=== PATIENT | male | born 1945 | race Caucasian/White ===

== ENCOUNTER 2020-06-19 17:34 | Inpatient (IN) | payer MEDICARE, OTHER ==
[~2020-06-19] VITALS: Ht 172.7 cm; Wt 81.7 kg
[~2020-06-19 17:34] MED LIST: OMEP20ER PO
[2020-06-19] MEDS ORDERED: Prinivil10 MG PO (17:56)
[2020-06-19] MEDS ORDERED: HYDCHL12.5 PO (17:56)
[2020-06-19] MEDS ORDERED: MULTIPLE VITAM1 EACH PO (17:57)
[2020-06-19 18:04] LABS: BASOPHILS ABSOLUTE AUTO 0.06 K/mm3 (0.00-0.23); BASOPHILS PERCENT AUTO 0 % (0-2); EOSINOPHILS ABSOLUTE AUTO 0.15 K/mm3 (0.00-0.68); EOSINOPHILS PERCENT AUTO 1 % (0-6); Hematocrit 42.6 % (37.0-53.0); Hemoglobin 14.8 g/dL (13.5-17.5); IMMATURE GRAN ABSOLUTE AUTO 0.06 K/mm3 (0.00-0.10); IMMATURE GRAN PERCENT AUTO 0 % (0-1); LYMPHOCYTES ABSOLUTE AUTO 2.94 K/mm3 (0.84-5.20); LYMPHOCYTES PERCENT AUTO 20 % (21-46); MONOCYTES PERCENT AUTO 12 % (4-13); Mean Corpuscular HGB 30.6 pg (26.0-34.0); Mean Corpuscular HGB Conc 34.7 g/dL (31.5-36.5); Mean Corpuscular Volume 88 fL (80-100); Mean Platelet Volume 9.9 fL (9.1-12.4); NEUTROPHILS ABSOLUTE AUTO 9.61 K/mm3 (1.96-9.15); NEUTROPHILS PERCENT AUTO 66 % (41-73); Platelet Count 281 K/mm3 (150-400); RDW Standard Deviation 42.2 fL (35.1-46.3); Red Blood Cell Count 4.84 M/mm3 (4.30-5.90); White Blood Cell Count 14.52 K/mm3 (4.00-11.30)
[2020-06-19] MEDS ORDERED: LATA.005SO LEFTEYE (18:04)
[2020-06-19] MEDS ORDERED: MAGNESIUM OXID500 MG PO (18:06)
[2020-06-19] MEDS ORDERED: PREDNISOLONE ACE5 ML RIGHTEYE (18:06)
[2020-06-19] MEDS ORDERED: CHLOR-TRIMETON4 M1 PO (18:09)
[2020-06-19 18:18] LABS: Alanine Aminotransfer (ALT/SGP 36 U/L (12-78); Albumin, Blood 3.9 g/dL (3.4-5.0); Albumin/Globulin Ratio 1.1 (0.8-1.8); Alk Phos 78 U/L (50-136); Anion Gap 8 mmol/L (6-16); Aspartate Aminotrans (AST/SGOT 17 U/L (12-37); Bilirubin, Total 0.9 mg/dL (0.1-1.0); Blood Urea Nitrogen 18 mg/dL (8-24); Bun/Creatinine Ratio 17.6 (12.0-20.0); CO2, Blood 23 mmol/L (21-32); Calcium, Blood 9.4 mg/dL (8.5-10.1); Chloride, Blood 104 mmol/L (98-108); Creatinine, Blood 1.02 mg/dL (0.60-1.20); Globulin, Blood 3.6 g/dL (2.2-4.0); Glomerular Filtration Rate >60 (60-); Glucose, Blood 146 mg/dL (70-99); Potassium, Blood 3.6 mmol/L (3.5-5.5); Sodium, Blood 135 mmol/L (136-145); Total Protein, Blood 7.5 g/dL (6.4-8.2); Troponin I <0.015 ng/mL (0.000-0.040)
[2020-06-19] MEDS ORDERED: Vitamin B Comple1 EA PO (18:29)
[2020-06-19] MEDS ORDERED: Roxicodone5 MG PO (19:48)
[2020-06-19] MEDS ORDERED: ONDA4ODT MM (19:48)
[2020-06-19] MEDS ORDERED: VITAMIN D5000 UNIT PO (20:45)
[2020-06-19] MEDS ORDERED: IBUP400 PO (20:45)
[2020-06-19] MEDS ORDERED: POTASSIUM GLUC500 M1 PO (20:51)
[2020-06-20 02:08] LABS: Source, Urine Clean Catch
[2020-06-20 02:20] LABS: Bilirubin, Urine Neg (Neg); Blood, Urine Neg (Neg); Glucose Qualitative, Urine 1+ (Neg); Ketones, Urine 2+ (Neg); Leukocyte Esterase, Urine Neg (Neg); Nitrite, Urine Neg (Neg); Protein, Urine 1+ (Neg); Urobilinogen, Urine NORM (Normal)
[2020-06-20 02:35] LABS: Appearance, Urine Clear (Clear); Color, Urine Yellow (P-Yellow)
--- NOTE | 2020-06-20 05:05 | NUR ---
SUMMARY PT ARRIVED TO FLOOR IN DISCOMFORT. PT TX PER EMAR W/ RELIEF. PT REPORTED PAIN BEFOR NEXT DOSE WAS DUE. DR BACON CALLED AND CHANGED PAIN MED TO Q2HRS. PT MORE COMFORTABLE. PT HAS BEEN BED REST AND USING URINAL TO VOID. PT HAS NOT REPORTED ANY DIZZINESS. PT HAS REMAINED NPO. PT HAS BEEN ABLE TO SLEEP SOME. PT CURRENTLY SLEEPING AND COMFORTABLE. CALL LIGHT IN REACH.
[2020-06-20 05:19] LABS: BASOPHILS ABSOLUTE AUTO 0.03 K/mm3 (0.00-0.23); BASOPHILS PERCENT AUTO 0 % (0-2); EOSINOPHILS ABSOLUTE AUTO 0.01 K/mm3 (0.00-0.68); EOSINOPHILS PERCENT AUTO 0 % (0-6); Hematocrit 39.7 % (37.0-53.0); Hemoglobin 13.6 g/dL (13.5-17.5); IMMATURE GRAN ABSOLUTE AUTO 0.04 K/mm3 (0.00-0.10); IMMATURE GRAN PERCENT AUTO 0 % (0-1); LYMPHOCYTES ABSOLUTE AUTO 1.02 K/mm3 (0.84-5.20); LYMPHOCYTES PERCENT AUTO 7 % (21-46); MONOCYTES ABSOLUTE AUTO 1.41 K/mm3 (0.16-1.47); MONOCYTES PERCENT AUTO 9 % (4-13); Mean Corpuscular HGB 30.4 pg (26.0-34.0); Mean Corpuscular HGB Conc 34.3 g/dL (31.5-36.5); Mean Corpuscular Volume 89 fL (80-100); Mean Platelet Volume 9.9 fL (9.1-12.4); NEUTROPHILS PERCENT AUTO 83 % (41-73); Platelet Count 239 K/mm3 (150-400); RDW Coefficient Variation 13.1 % (11.7-14.2); RDW Standard Deviation 42.8 fL (35.1-46.3); Red Blood Cell Count 4.48 M/mm3 (4.30-5.90); White Blood Cell Count 15.11 K/mm3 (4.00-11.30)
[2020-06-20 06:29] LABS: Alanine Aminotransfer (ALT/SGP 30 U/L (12-78); Albumin, Blood 3.1 g/dL (3.4-5.0); Albumin/Globulin Ratio 0.9 (0.8-1.8); Alk Phos 66 U/L (50-136); Anion Gap 7 mmol/L (6-16); Aspartate Aminotrans (AST/SGOT 16 U/L (12-37); Bilirubin, Total 1.3 mg/dL (0.1-1.0); Blood Urea Nitrogen 14 mg/dL (8-24); Bun/Creatinine Ratio 18.3 (12.0-20.0); CHOL/HDL RATIO 3.4; CO2, Blood 25 mmol/L (21-32); Calcium, Blood 8.5 mg/dL (8.5-10.1); Chloride, Blood 105 mmol/L (98-108); Cholesterol 186 mg/dL (50-200); Creatinine, Blood 0.77 mg/dL (0.60-1.20); Globulin, Blood 3.6 g/dL (2.2-4.0); Glomerular Filtration Rate >60 (60-); Glucose, Blood 130 mg/dL (70-99); HDL Cholesterol 55 mg/dL (>39); LDL/HDL RATIO 2.2; Low Density Lipoprotein Chol 121 mg/dL (0-110); Magnesium, Blood 2.1 mg/dL (1.6-2.4); Potassium, Blood 4.3 mmol/L (3.5-5.5); Sodium, Blood 137 mmol/L (136-145); Total Protein, Blood 6.7 g/dL (6.4-8.2); Triglycerides 50 mg/dL (30-160); Very Low Density Lipoprot Chol 10 mg/dL (6-32)
--- NOTE | 2020-06-20 17:34 | NUR ---
SHIFT SUMMARY PT CONTINUED ON NS IV FLUIDS AT 125ML/HR. OKAY FOR ICE CHIPS. PT IS TOLERATING SMALL AMOUNTS WELL. PAIN WAS DIFFICULT TO MANAGE THIS AM, WHILE BEING TREATED EVERY 2 HOURS WITH FENTANYL. LOWEST PAIN RATING WAS A 5 WITH FENTANYL. IV DILADID ADDED BY DR. HOLDER TODAY, WHICH SEEMS TO BE WORKING BETTER FOR THE PT. PT GOING LONGER PERIODS OF TIME WITHOUT MEDICATION AND REPORTS MINIMAL PAIN AFTER IT IS ADMINISTERED. PT , JENNIFER, AT BEDSIDE. NO FURTHER EPISODES OF SYNCOPE OF FAINTNESS. PT ONLY GOT OUT OF BED ONCE TODAY TO USE THE BATHROOM. PT REMAINS MILDLY TACHYCARDIC AT 102 THIS AFTERNOON. MILD TEMP AT 99.9. OTHER VITALS STABLE. NO OTHER ACUTE CHANGES IN ASSESSMENT AT THIS TIME.
--- NOTE | 2020-06-21 03:30 | NUR ---
SUMMARY NO NEW ISSUES NOTED. PT PAIN MANAGED WELL. PT HAS SLEPT WELL T/O SHIFT. PT CURRENTLY SLEEPING IN NO DISTRESS. CALL LIGHT IN REACH.
[2020-06-21 05:13] LABS: BASOPHILS ABSOLUTE AUTO 0.05 K/mm3 (0.00-0.23); BASOPHILS PERCENT AUTO 0 % (0-2); EOSINOPHILS ABSOLUTE AUTO 0.02 K/mm3 (0.00-0.68); EOSINOPHILS PERCENT AUTO 0 % (0-6); Hematocrit 38.5 % (37.0-53.0); IMMATURE GRAN ABSOLUTE AUTO 0.07 K/mm3 (0.00-0.10); IMMATURE GRAN PERCENT AUTO 1 % (0-1); LYMPHOCYTES ABSOLUTE AUTO 1.13 K/mm3 (0.84-5.20); LYMPHOCYTES PERCENT AUTO 8 % (21-46); MONOCYTES ABSOLUTE AUTO 1.64 K/mm3 (0.16-1.47); MONOCYTES PERCENT AUTO 11 % (4-13); Mean Corpuscular HGB 30.5 pg (26.0-34.0); Mean Corpuscular HGB Conc 33.8 g/dL (31.5-36.5); Mean Corpuscular Volume 90 fL (80-100); Mean Platelet Volume 9.4 fL (9.1-12.4); NEUTROPHILS ABSOLUTE AUTO 11.87 K/mm3 (1.96-9.15); NEUTROPHILS PERCENT AUTO 80 % (41-73); Platelet Count 221 K/mm3 (150-400); RDW Coefficient Variation 13.6 % (11.7-14.2); RDW Standard Deviation 44.4 fL (35.1-46.3); Red Blood Cell Count 4.26 M/mm3 (4.30-5.90); White Blood Cell Count 14.78 K/mm3 (4.00-11.30)
[2020-06-21 05:41] LABS: Albumin, Blood 2.9 g/dL (3.4-5.0); Anion Gap 6 mmol/L (6-16); Blood Urea Nitrogen 13 mg/dL (8-24); Bun/Creatinine Ratio 19.2 (12.0-20.0); CO2, Blood 26 mmol/L (21-32); Calcium, Blood 8.4 mg/dL (8.5-10.1); Chloride, Blood 106 mmol/L (98-108); Creatinine, Blood 0.68 mg/dL (0.60-1.20); Glomerular Filtration Rate >60 (60-); Glucose, Blood 101 mg/dL (70-99); Magnesium, Blood 2.2 mg/dL (1.6-2.4); Phosphorus, Blood 1.9 mg/dL (2.5-4.9); Potassium, Blood 4.1 mmol/L (3.5-5.5); Sodium, Blood 138 mmol/L (136-145)
--- NOTE | 2020-06-21 17:28 | NUR ---
SHIFT SUMMARY PT RESTING QUIETLY AT START OF SHIFT. DENIED PAIN AT THAT TIME. PT HAD BEEN MEDICATED TWICE DURING THE NIGHT, WHICH WAS AN IMPROVEMENT FROM ADMISSION. DR HOLDER IN TO SEE PT THIS AM. DIET ADVANCED TOLERATED. PT HAS BEEN TOLERATING CLEAR LIQUIDS WELL, EXCEPT FOR BROTH, IT SEEMED TO INCREASE PAIN SLIGHTLY. PO PAIN MEDICATION ADDED. PAIN LEVEL HAS DECREASED OVERALL TODAY. PT'S IN TO SEE HIM FOR VISITING HOURS. DR HOLDER CALLED HER WITH UPDATE AND ANSWERED QUESTIONS. PT UP TO BTHRM WITH SBA AND USING URINAL AT BS. SR ON TELE. DENIED FURTHER NEEDS. CALL LT IN REACH.
--- NOTE | 2020-06-22 04:19 | NUR ---
SUMMARY NO NEW ISSUES. PT HAVING SOME ABD PAIN. PT TX W/ PO PAIN MEDS PER EMAR. PT HAS SLEPT WELL. PT DENIES DIZZINESS OR NAUSEA WHILE AMBULATING TO BATHROOM. PT CURRENTLY SLEEPING AND BREATHING EASY. CALL LIGHT IN REACH.
[2020-06-22 05:02] LABS: BASOPHILS ABSOLUTE AUTO 0.05 K/mm3 (0.00-0.23); BASOPHILS PERCENT AUTO 1 % (0-2); EOSINOPHILS PERCENT AUTO 2 % (0-6); Hematocrit 35.5 % (37.0-53.0); Hemoglobin 12.1 g/dL (13.5-17.5); IMMATURE GRAN ABSOLUTE AUTO 0.02 K/mm3 (0.00-0.10); IMMATURE GRAN PERCENT AUTO 0 % (0-1); LYMPHOCYTES PERCENT AUTO 14 % (21-46); MONOCYTES ABSOLUTE AUTO 1.13 K/mm3 (0.16-1.47); MONOCYTES PERCENT AUTO 12 % (4-13); Mean Corpuscular HGB 30.6 pg (26.0-34.0); Mean Corpuscular HGB Conc 34.1 g/dL (31.5-36.5); Mean Corpuscular Volume 90 fL (80-100); Mean Platelet Volume 9.8 fL (9.1-12.4); NEUTROPHILS PERCENT AUTO 72 % (41-73); Platelet Count 209 K/mm3 (150-400); RDW Coefficient Variation 13.4 % (11.7-14.2); RDW Standard Deviation 44.6 fL (35.1-46.3); Red Blood Cell Count 3.96 M/mm3 (4.30-5.90)
[2020-06-22 05:15] LABS: Albumin, Blood 2.5 g/dL (3.4-5.0); Anion Gap 6 mmol/L (6-16); Blood Urea Nitrogen 10 mg/dL (8-24); Bun/Creatinine Ratio 12.5 (12.0-20.0); CO2, Blood 28 mmol/L (21-32); Calcium, Blood 8.3 mg/dL (8.5-10.1); Chloride, Blood 106 mmol/L (98-108); Glomerular Filtration Rate >60 (60-); Glucose, Blood 134 mg/dL (70-99); Phosphorus, Blood 1.2 mg/dL (2.5-4.9); Potassium, Blood 3.7 mmol/L (3.5-5.5); Sodium, Blood 140 mmol/L (136-145)
[2020-06-22] MEDS ORDERED: K-Phos Origina500 MG PO (12:26)
--- NOTE | 2020-06-22 12:51 | NUR ---
DISCHARGE DISCHARGE ORDERS RECEIVED. PATIENT AND AGREEABLE TO THE PLAN. PATIENT REQUESTS [facility] FOR RX. NO PCP FOLLOW UP APPOINTMENT MADE BY THIS RN AT THE PATIENTS REQUEST. HE STATES HE WILL MAKE THE APPOINTMENT BASED IN HIS AND HIS WIFES AVAILABILITY NEXT WEEK. DC TEACHING COMPLETED, PATIENT AND VERBALIZED UNDERSTANDING. IV REMOVED INTACT AND DRESSING APPLIED. PATIENT ESCORTED OUT TO PERSONAL VEHICLE BY [employer] AND [employer] INSPECTOR. PATIENT STABLE AT TIME OF DISCHARGE.
== END 2020-06-22 13:07 | disposition home or self-care (01) | DRG 440 ==
LOC: ER 17:34 → MEDS 17:35 → ENPENDDIS 06-22 11:28 → MEDS 06-22 13:07
PROVIDERS: Internal Medicine; Student in an Organized Health Care Education/Training Program; ADMIT Internal Medicine
DX: K85.90 Acute pancreatitis without necrosis or infection, unspecified (principal); R55 Syncope and collapse; I49.3 Ventricular premature depolarization; K21.9 Gastro-esophageal reflux disease without esophagitis; I10 Essential (primary) hypertension; Z23 Encounter for immunization; Z88.5 Allergy status to narcotic agent; Z79.899 Other long term (current) drug therapy; Z90.49 Acquired absence of other specified parts of digestive tract; Z98.890 Other specified postprocedural states
CPT/HCPCS: 36415; 71045; 74177; 80053; 80061; 80069; 83690; 83735; 83880; 84484; 85025; 93005; 93010; 96361; 96372; 96374-59; 96375; 96376; 99285-25; A9270; G0008; G0378; J1170; J1650; J2270; J3010; J3480; J7030; J7120; Q2038; Q9967